=== PATIENT | female | born 1935 | race Caucasian/White ===

== ENCOUNTER 2020-03-30 13:36 | Emergency (ER) | payer MEDICARE | END 2020-03-30 14:55 | disposition left against medical advice (07) | LOC: ERS 13:36 | DX: S89.91XA Unspecified injury of right lower leg, initial encounter (principal); E03.9 Hypothyroidism, unspecified; I10 Essential (primary) hypertension; W01.10XA Fall on same level from slipping, tripping and stumbling with subsequent striking against unspecified object, initial encounter | CPT/HCPCS: 99283 ==